=== PATIENT | male | born 1990 | race Caucasian/White ===

== ENCOUNTER 2024-10-06 20:38 | Emergency (ER) | payer OTHER, SELFPAY ==
[2024-10-06 20:39] VITALS: BP 149/89
--- NOTE | 2024-10-06 22:57 | ED.GENMED ---
History of Present Illness
General
Chief Complaint: DVT/Possible Blood Clot
Source: patient
Exam Limitations: none
Time Seen by Provider: 10/06/24 22:47
History of Present Illness
History of Present Illness:
34yoM with a history of anxiety and depression presenting for evaluation of left calf pain. Patient noticed this evening that his left calf had some discomfort in it. He looked down and noticed a small bruise. He became worried about a DVT so
decided to come to the ED. He denies any known trauma to the area. He is otherwise asymptomatic denies any chest pain, shortness of breath, syncope, fevers. Of note, his uncle was recently diagnosed with a DVT and tested positive for a genetic
clotting disorder. Patient denies any personal history of VTE. No recent travel.
Past History
Past History
ED Past Medical History: Psychiatric (Anxiety) and Other (Celiac disease)
ED Past Surgical History: None
Social History
Tobacco: Non-smoker
Phy Exam
General Physical Exam
General Presentation: well appearing and no apparent distress
General age: appears stated age
General Skin: warm and dry
General Habitus: normal
General Mental: alert
ENT Exam
ENT Exam: normocephalic
Pulmonary Exam
Pulmonary Exam: no respiratory distress
Neurological Exam
Neurological Exam: alert
[place] Coma Scale
Eye Opening: Spontaneous
Verbal Response: Oriented
Motor Response: Obeys Commands
GCS Total Score: 15
Musculoskeletal Exam
Musculoskeletal Exam: other (Small area of ecchymosis noted to the L posterior calf with mild tenderness. No pitting edema in extremity. Compartments soft. 2+ DP pulse and sensation intact. )
Skin Exam
Skin Exam: warm/dry
Psychiatric Exam
Psychiatric Exam: normal mood/affect
Course
Orders/Labs/Results
Orders:
Orders
10/06/24 20:41
US Legs, Left [US Periph Venous LOWER Ext LT] Urgent
Comment:
Reason For Exam: left calf pain
Vital Signs
Initial and Last Documented VS:
Initial Vital Signs
Temp Pulse Resp BP Pulse Ox
98.2 F 98 20 149/89 99
10/06/24 20:39 10/06/24 20:39 10/06/24 20:39 10/06/24 20:39 10/06/24 20:39
Last Documented Vital Signs
Temp Pulse Resp BP Pulse Ox
98.2 F 98 20 149/89 99
10/06/24 20:39 10/06/24 20:39 10/06/24 20:39 10/06/24 20:39 10/06/24 20:39
MDM/Problems Addressed
Differential Diagnosis Includes:
34yoM here with atraumatic L calf pain that he noticed today. Worried about a DVT. Family hx of clotting disorder. No CP/SOB. VSS. He is well appearing in no distress. There is a small contusion noted to the L calf on exam. No pitting edema. LLE is
neurovascularly intact. Differential diagnosis includes but is not limited to: DVT, superficial thrombophlebitis, contusion, muscle strain
Venous duplex obtained in triage which is negative for DVT. Patient provided with reassurance. Patient showed me his recent outpatient blood work from July 2024 and CBC was normal at that time. Advised f/u with PCP and ED return precautions
discussed. Patient discharged in stable condition.
*Critical Care Note
Total Time (30-74mins, 75-104mins- exclusive of procedures): Not Applicable
ED Attending Note
-
Portions of this chart may have been created with voice recognition software.� Occasional wrong word or��sound alike� substitutions may have occurred due to the inherent limitations of voice recognition software.
Discharge Plan
Departure
Patient Disposition: Home (Routine Discharge)
Date of Disposition: 10/06/24
Time of Disposition: 22:58
Patient with high blood pressure during this ER visit?: Yes
Discharge Problem:
Contusion of left calf
Instructions: Contusion
Activity Restrictions/Additional Instructions:
Apply ice to affected area. Take Tylenol and ibuprofen for pain.
Please follow-up with your family doctor. Return to the ER with any new or worsening symptoms.
Interventions
Interventions:
*General Assessment Last Done: 10/06/24 20:39
Discharge Date and Time
Print Language: NICARAGU[place]
[2024-10-06 23:22] VITALS: BP 129/90
== END 2024-10-06 23:30 | disposition home or self-care (01) ==
LOC: EMR 20:38
PROVIDERS: EMERGENCY PHYSICIAN Emergency Medicine; FAMILY PHYSICIAN Family Medicine
DX: S80.12XA Contusion of left lower leg, initial encounter (principal); X58.XXXA Exposure to other specified factors, initial encounter; M79.662 Pain in left lower leg; R03.0 Elevated blood-pressure reading, without diagnosis of hypertension; K90.0 Celiac disease; F41.9 Anxiety disorder, unspecified; F32.A Depression, unspecified; Z88.1 Allergy status to other antibiotic agents
CPT/HCPCS: 99284; 93971